=== PATIENT | male | born 1980 | race Caucasian/White ===

== ENCOUNTER 2018-01-06 14:09 | Emergency (ER) | payer OTHER ==
[~2018-01-06] VITALS: Ht 182.9 cm; Wt 116.1 kg
--- NOTE | ~2018-01-06 | EKG ---
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 : 1980 Requested By: Abena Vasquez Order Number: [id number] MD: Naldo Tony Measurements Intervals [place] Rate: 56 P: 30 [place]: 177 QRS: 29 QRSD: 120 T: 79 QT: 406 QTc: 392 Interpretive Statements Sinus bradycardia Probable left ventricular hypertrophy Compared to ECG 11/24/2004 01:27:22 Ventricular premature complex(es) no longer present Electronically Signed On 01-06-2018 16:55:39 CDT by Naldo Tony [email or web address] <ELECTRONICALLY SIGNED> By: Naldo Tony MD, [facility] 01/06/18 1655 D: 08/1426 142 Naldo Tony MD, FACC /EPI
[2018-01-06 14:39] LABS: HEMATOCRIT 43.5 % (42.0-52.0); HEMOGLOBIN 15.6 gm/dL (14.0-18.0); MCH 29.1 pg (26.0-34.0); MCHC 35.8 g/dL (28.0-37.0); MCV 81.3 fL (80.0-100.0); RBC 5.35 mil/uL (4.50-6.00); WBC 5.2 thou/uL (4.0-11.0)
[2018-01-06 14:43] LABS: ANION GAP 9 mmol/L (7-16); BUN 21 mg/dL (7-18); CALCIUM 8.7 mg/dL (8.5-10.1); CHLORIDE 98 mmol/L (98-107); CO2 25 mmol/L (21-32); GLUCOSE 327 mg/dL (74-106); POTASSIUM 4.2 mmol/L (3.5-5.1); SODIUM 132 mmol/L (136-145)
[2018-01-06 14:52] LABS: TROPONIN-I <0.06 ng/mL (<0.06)
[2018-01-06 15:25] VITALS: BP 141/91
== END 2018-01-06 15:49 | disposition home or self-care (01) ==
LOC: ER 14:09
PROVIDERS: Student in an Organized Health Care Education/Training Program
DX: R07.89 Other chest pain (principal); I10 Essential (primary) hypertension; E11.9 Type 2 diabetes mellitus without complications; E78.5 Hyperlipidemia, unspecified

== ENCOUNTER 2020-05-18 18:55 | Emergency (ER) | payer OTHER ==
[~2020-05-18] VITALS: Ht 182.9 cm; Wt 104.3 kg
[2020-05-18] MEDS ORDERED: VIT D (19:23)
[2020-05-18] MEDS ORDERED: BAYER CHEWABLE81 MG PO (19:23)
[2020-05-18] MEDS ORDERED: SUPER THERAVIT1 EACH PO (19:23)
[2020-05-18] MEDS ORDERED: VIT E (19:24)
[2020-05-18] MEDS ORDERED: VIT C (19:24)
[2020-05-18] MEDS ORDERED: FISH OIL 1,0001 EAC9 PO (19:24)
[2020-05-18] MEDS ORDERED: CINNAMON (19:24)
[2020-05-18 19:26] LABS: ABSOLUTE NEUTROPHILS 4.3 thou/uL (1.4-8.2); BASOPHILS 0.6 % (0.0-2.0); EOSINOPHILS 0.7 % (0.0-3.0); HEMATOCRIT 47.4 % (42.0-52.0); HEMOGLOBIN 16.4 gm/dL (14.0-18.0); LYMPHOCYTES 26.2 % (24.0-44.0); MCH 28.6 pg (26.0-34.0); MCHC 34.5 g/dL (28.0-37.0); PLATELET COUNT 193 thou/uL (150-400); POLYS 65.5 % (36.0-66.0); RBC 5.71 mil/uL (4.50-6.00); RDW 13.1 % (10.5-14.5); WBC 6.5 thou/uL (4.0-11.0)
[2020-05-18 19:27] LABS: URINE BILIRUBIN NEGATIVE (Negative); URINE BLOOD NEGATIVE (Negative); URINE CLARITY CLEAR; URINE COLOR YELLOW; URINE GLUCOSE-RANDOM* 3+ (Negative); URINE KETONES NEGATIVE (Negative); URINE LEUKOCYTES-REFLEX NEGATIVE (Negative); URINE NITRITE-REFLEX NEGATIVE (Negative); URINE PROTEIN (DIPSTICK) NEGATIVE (Negative); URINE SPECIFIC GRAVITY 1.015 (1.005-1.035); URINE UROBILINOGEN 0.2 E.U./dl (0.2-1.0)
[2020-05-18 19:49] LABS: CALCIUM 9.6 mg/dL (8.5-10.1); CREATININE 1.1 mg/dL (0.7-1.3); POTASSIUM 4.2 mmol/L (3.5-5.1); TOTAL BILIRUBIN 0.4 mg/dL (0.2-1.0); TOTAL PROTEIN 7.6 g/dL (6.4-8.2)
[2020-05-18 20:11] LABS: BE(vivo) 1.2 mmol/L (-2 to +3); HCO3 26.1 mmol/L (22.0-26.0); PCO2 VENOUS 42.3 mmHg (41.0-51.0); PO2 VENOUS 77.4 mmHg (35.0-45.0)
[2020-05-19 04:34] VITALS: BP 149/85
--- NOTE | 2020-05-20 08:50 | EKG ---
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 : 1980 Requested By: Nik Larson Order Number: [id number] MD: Nicholas Saul Measurements Intervals [place] Rate: 65 P: 34 [place]: 193 QRS: 31 QRSD: 96 T: 70 QT: 411 QTc: 428 Interpretive Statements Sinus rhythm Anteroseptal infarct, old Compared to ECG 01/06/2018 14:27:55 Myocardial infarct finding now present Sinus bradycardia no longer present Electronically Signed On 05-20-2020 8:50:43 BAGMAN/WOMAN by Nicholas Saul [email or web address] <ELECTRONICALLY SIGNED> By: Nicholas Saul MD, [facility] 05/20/20 0850 1926 25 Nicholas Saul MD, FACC /EPI
== END 2020-05-19 04:35 | disposition short-term general hospital (02) ==
LOC: ER 18:55
PROVIDERS: Emergency Medicine
DX: I77.74 Dissection of vertebral artery (principal); E11.9 Type 2 diabetes mellitus without complications; I10 Essential (primary) hypertension; Z79.899 Other long term (current) drug therapy; Z87.891 Personal history of nicotine dependence

== ENCOUNTER 2020-08-31 17:17 | Inpatient (IN) | payer OTHER ==
[~2020-08-31] VITALS: Ht 182.9 cm; Wt 126.1 kg
[~2020-08-31 17:17] MED LIST: BAYER CHEWABLE81 MG PO; CINNAMON; FISH OIL 1,0001 EAC9 PO; SUPER THERAVIT1 EACH PO; VIT C; VIT D; VIT E
[2020-08-31 17:26] VITALS: BP 174/107
[2020-08-31] MEDS ORDERED: COZAAR 25 MG TA25 M1 PO (17:29)
[2020-08-31] MEDS ORDERED: METFORMIN HCL500 M3 PO (17:29)
[2020-08-31] MEDS ORDERED: CARVEDILOL12.5 MG PO (17:29)
[2020-08-31] MEDS ORDERED: LIPITOR40 MG PO (17:30)
[2020-08-31 18:38] LABS: ABSOLUTE NEUTROPHILS 3.4 thou/uL (1.4-8.2); BASOPHILS 0.5 % (0.0-2.0); EOSINOPHILS 2.1 % (0.0-3.0); HEMATOCRIT 42.7 % (42.0-52.0); HEMOGLOBIN 14.9 gm/dL (14.0-18.0); LYMPHOCYTES 34.8 % (24.0-44.0); MCH 29.9 pg (26.0-34.0); MCHC 34.8 g/dL (28.0-37.0); MCV 85.8 fL (80.0-100.0); MONOCYTES 7.9 % (1.0-8.0); PLATELET COUNT 166 thou/uL (150-400); POLYS 54.7 % (36.0-66.0); RBC 4.98 mil/uL (4.50-6.00); RDW 13.7 % (10.5-14.5); WBC 6.1 thou/uL (4.0-11.0)
[2020-08-31 18:57] LABS: CALCIUM 8.3 mg/dL (8.5-10.1); POTASSIUM 3.9 mmol/L (3.5-5.1)
[2020-08-31 19:01] LABS: TROPONIN-I 0.06 ng/mL (<0.06)
[2020-08-31 21:33] VITALS: BP 159/94
[2020-08-31] MEDS ORDERED: ASA81BEC PO (22:44)
[2020-08-31 23:08] LABS: CHOLESTEROL 110 mg/dL (<200); HDL CHOLESTEROL 35 mg/dL (>40); LDL CHOLESTEROL 53 mg/dL (<100); TC:HDL 3.1 Ratio (Not establshd); TRIGLYCERIDE 113 mg/dL (<150); VLDL 23 mg/dL (<40)
[2020-08-31 23:10] LABS: SERUM ASSESSMENT Clear
[2020-08-31 23:45] VITALS: BP 129/77
[2020-09-01] VITALS: BP 135/76
--- NOTE | 2020-09-01 02:12 | NUR ---
PATIENT WAS A NEW ADMISSION TO THE UNIT THIS SHIFT. HE ARRIVED VIA CART FROM THE ER AND WAS ABLE TO AMBULATE TO THE BED WITHOUT ASSISTANCE INCIDENT FREE. PATIENT IS FULLY ALERT AND ORIENTED AND ABLE TO PARTICIPATE IN ADMISSION. NO COMPLAINTS OF CHEST PAIN, PATIENT WAS INSTRUCTED TO CALL WITH NURSE EDUCATED CARDIAC SYMPTOMS. PATIENT APPEARS STRONG AND BALANCED WHEN AMBULATING. NURSE TO COMPLETE ADMISSION AND INITIATE PLAN OF CARE.
[2020-09-01 04:10] VITALS: BP 137/79
[2020-09-01 05:32] LABS: CALCIUM 8.1 mg/dL (8.5-10.1); POTASSIUM 3.4 mmol/L (3.5-5.1)
[2020-09-01 07:00] VITALS: BP 148/88
[2020-09-01 11:45] VITALS: BP 145/89
[2020-09-01 15:10] VITALS: BP 140/78
--- NOTE | 2020-09-01 17:33 | NUR ---
ASSUMED CARE SHIFT CHANGE. ASSESSMENTS CHARTED.MEDS GIVEN PER MAR. VSS. DENIES PAIN, DENIES CP. NO SOB. PLAN FOR POSSIBLE DC TOMORROW. CONTINUING POC. WILL PASS ON REPORT TO NOC RN.
[2020-09-01 19:50] VITALS: BP 146/77
[2020-09-02 05:18] LABS: ANION GAP 10 mmol/L (7-16); BUN 17 mg/dL (7-18); CALCIUM 7.8 mg/dL (8.5-10.1); CHLORIDE 108 mmol/L (98-107); CO2 26 mmol/L (21-32); CREATININE 0.9 mg/dL (0.7-1.3); GLUCOSE 166 mg/dL (74-106); POTASSIUM 3.7 mmol/L (3.5-5.1); SODIUM 144 mmol/L (136-145); TROPONIN-I <0.06 ng/mL (<0.06)
[2020-09-02 05:36] LABS: GLYCOHEMOGLOBIN (HGB A1C) 7.1 % (4.8-5.6)
--- NOTE | 2020-09-02 07:35 | NUR ---
Pt transfered from 2N @ 0040. A/OX4,VSS. Up ad angella w/o any problems, denies pain on assessment. Looking forward to dc today. SR on telemetry.
[2020-09-02 07:57] VITALS: BP 144/95
--- NOTE | 2020-09-02 09:57 | NUR ---
PT A&OX4, VSS, DENIES HEADACHE, DIZZINESS, CHEST PAIN. PATIENT AD AKANKSHA. PT ROOM AIR, NO SIGNS OF DISTRESS. BLOOD SUGAR CHECK, IV PATENT WITH PATIETN. PATIETN WILL DISCHARGE TODAY. WILL CONTINUE TO MONITOR.
--- NOTE | 2020-09-02 11:03 | EKG ---
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1980 Requested By: Umer Villar Order Number: [id number] MD: Dinesh Hare Measurements Intervals [place] Rate: 76 P: 33 [place]: 194 QRS: 21 QRSD: 95 T: 83 QT: 379 QTc: 427 Interpretive Statements Sinus rhythm Left ventricular hypertrophy Anterior Q waves, possibly due to LVH Compared to ECG 05/18/2020 19:26:36 Left ventricular hypertrophy now present Q waves now present Myocardial infarct finding no longer present Electronically Signed On 09-02-2020 11:03:08 CDT by Dinesh Hare [email or web address] <ELECTRONICALLY SIGNED> By: Dinesh Hare MD 09/02/20 1103 181 181 Dinesh Hare MD /EPI
--- NOTE | 2020-09-02 11:04 | EKG ---
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 : 1980 Requested By: Rika Corona Order Number: [id number] MD: Dinesh Hare Measurements Intervals [place] Rate: 66 P: 28 [place]: 188 QRS: 14 QRSD: 106 T: 116 QT: 411 QTc: 431 Interpretive Statements Sinus rhythm Left ventricular hypertrophy Nonspecific T abnormalities, lateral leads Compared to ECG 08/31/2020 18:14:26 T-wave abnormality now present Q waves no longer present Electronically Signed On 09-02-2020 11:04:07 CDT by Dinesh Hare [email or web address] <ELECTRONICALLY SIGNED> By: Dinesh Hare MD 09/02/20 1104 3 3 Dinesh Hare MD /VENITA
[2020-09-02] MEDS ORDERED: BENICAR20 MG PO (11:31)
[2020-09-02] MEDS ORDERED: ACETAMINOPHEN325 M1 PO (11:31)
[2020-09-02] MEDS ORDERED: METOPROLOL SUCC25 M1 PO (11:31)
[2020-09-02 12:17] VITALS: BP 144/95
== END 2020-09-02 13:56 | disposition home or self-care (01) | DRG 305 ==
LOC: ER 17:17 → EROBS 21:45 → 2N 23:45 → 4W 09-02 00:45
PROVIDERS: Internal Medicine; Nurse Practitioner; Nurse Practitioner Family; ADMIT Hospitalist; ATTEND Hospitalist
DX: I16.1 Hypertensive emergency (principal); I25.110 Atherosclerotic heart disease of native coronary artery with unstable angina pectoris; R77.8 Other specified abnormalities of plasma proteins; I10 Essential (primary) hypertension; E11.9 Type 2 diabetes mellitus without complications; E78.5 Hyperlipidemia, unspecified; E66.01 Morbid (severe) obesity due to excess calories; Z68.37 Body mass index [BMI] 37.0-37.9, adult; Z91.14 Patient's other noncompliance with medication regimen; Z86.73 Personal history of transient ischemic attack (TIA), and cerebral infarction without residual deficits; Z79.84 Long term (current) use of oral hypoglycemic drugs; Z79.899 Other long term (current) drug therapy; Z87.891 Personal history of nicotine dependence
CPT/HCPCS: 10081

== ENCOUNTER → 2021-03-21 | Outpatient (CLI) | payer OTHER ==
[~2021-03-21] MED LIST changes: +ACETAMINOPHEN325 M1 PO; +ASA81BEC PO; +BENICAR20 MG PO; +CARVEDILOL12.5 MG PO; +COZAAR 25 MG TA25 M1 PO; +LIPITOR40 MG PO; +METFORMIN HCL500 M3 PO; +METOPROLOL SUCC25 M1 PO
== END ==
LOC: SJCVCIMAG 09:04
PROVIDERS: ATTEND Internal Medicine Cardiovascular Disease
DX: I07.1 Rheumatic tricuspid insufficiency (principal); I10 Essential (primary) hypertension; I63.9 Cerebral infarction, unspecified; E11.9 Type 2 diabetes mellitus without complications; Z79.82 Long term (current) use of aspirin; Z79.899 Other long term (current) drug therapy; Z79.84 Long term (current) use of oral hypoglycemic drugs